=== PATIENT | male | born 1960 | race Caucasian/White ===

== ENCOUNTER 2018-01-31 14:29 | Emergency (ER) | payer OTHER ==
[2018-01-31 14:40] VITALS: O2SAT 97
--- NOTE | 2018-01-31 15:16 | ERPHSYRPT ---
- History of Present Illness Time Seen by Provider: 01/31/18 15:00 Source: patient Exam Limitations: no limitations Patient Subjective Stated Complaint: pt reports getting cut by a table saw on right hand-pointer and middle finger Triage Nursing Assessment: pt pink warm and [id number] noted with bleedign controlled-tip of finger absent to finger tip Physician History: The patient is a 57-year-old right-handed male who accidentally cut the tip of his left index and left middle finger on a table saw. He has no numbness or tingling. It also cut through his fingernail. He is able to move his fingers without problems. His tetanus vaccination is more than 5 years. His past medical history significant for diabetes and hypertension. Timing/Duration: today Quality: painful Severity: moderate Location: hands (left) Possible Causes: other (table saw) Allergies/Adverse Reactions: No Known Drug Allergies Allergy (Verified 01/31/18 14:40) Home Medications: Aspirin 81 gm Chew [Baby Aspirin 81 mg Chew] 81 mg PO DAILY 01/31/18 [ History] Carvedilol 6.25 mg [Coreg 6.25 MG] 6.25 mg PO BID 01/31/18 [History] Etodolac 200 mg PO BID 01/31/18 [History] Glimepiride 4 mg [Amaryl 4 mg] 6 mg PO DAILY 01/31/18 [History] Hydrochlorothiazide 12.5 mg PO DAILY 01/31/18 [History] Metformin HCl 500 mg [Glucophage 500 MG] 500 mg PO BIDWM 01/31/18 [History ] Hx Tetanus, Diphtheria Vaccination/Date Given: Yes Hx Influenza Vaccination/Date Given: No Hx Pneumococcal Vaccination/Date Given: No Immunizations Up to Date: Yes - Review of Systems Constitutional: No Fever, No Chills Eyes: No Symptoms Ears, Nose, & Throat: No Symptoms Respiratory: No Cough, No Dyspnea Cardiac: No Chest Pain, No Edema, No Syncope Abdominal/Gastrointestinal: No Abdominal Pain, No Nausea, No Vomiting, No Diarrhea Genitourinary Symptoms: No Dysuria Musculoskeletal: No Back Pain, No Neck Pain Skin: Other (lacerations) Neurological: No Dizziness, No Focal Weakness, No Sensory Changes Psychological: No Symptoms Endocrine: No Symptoms Hematologic/Lymphatic: No Symptoms Immunological/Allergic: No Symptoms All Other Systems: Reviewed and Negative - Past Medical History Pertinent Past Medical History: Yes Neurological History: No Pertinent History ENT History: No Pertinent History Cardiac History: Hypertension Respiratory History: No Pertinent History Endocrine Medical History: Diabetes Type II Musculoskeletal History: No Pertinent History GI Medical History: No Pertinent History History: No Pertinent History Psycho-Social History: No Pertinent History Male Reproductive Disorders: No Pertinent History - Past Surgical History Past Surgical History: Yes Neuro Surgical History: No Pertinent History Cardiac: No Pertinent History Respiratory: No Pertinent History Gastrointestinal: No Pertinent History Genitourinary: No Pertinent History Musculoskeletal: No Pertinent History Male Surgical History: No Pertinent History Other Surgical History: CARPAL TUNEL - Social History Smoking Status: Never smoker How long have you smoked: 30 YRS Exposure to second hand smoke: No Drug Use: none Patient Lives Alone: No - Nursing Vital Signs Nursing Vital Signs: Initial Vital Signs Pulse Rate 83 01/31/18 14:37 Respiratory Rate 18 01/31/18 14:37 Blood Pressure 139/95 01/31/18 14:37 O2 Sat by Pulse Oximetry 97 01/31/18 14:37 Pain Scale Pain Intensity 4 - Physical Exam General Appearance: no apparent distress, alert Eye Exam: PERRL/EOMI, eyes nml inspection Ears, Nose, Throat Exam: normal ENT inspection, pharynx normal, moist mucous membranes Neck Exam: normal inspection, non-tender, supple, full range of motion Respiratory Exam: normal breath sounds, lungs clear, No respiratory distress Cardiovascular Exam: regular rate/rhythm, normal heart sounds Gastrointestinal/Abdomen Exam: soft, mass, No tenderness Rectal Exam: not done Back Exam: normal inspection, normal range of motion, No CVA tenderness, No vertebral tenderness Extremity Exam: normal inspection, normal range of motion Neurologic Exam: alert, oriented x 3, cooperative, normal mood/affect, sensation nml, No motor deficits Skin Exam: laceration (lacerations to tip of left index and middle fingers.) SpO2 Interpretation: normal SpO2: 97 Oxygen Delivery: Room Air Procedures - Laceration/Wound Repair Left Finger Wound Location: Left, hand Wound Length (cm): 1.5 Wound's Depth, Shape: irregular, contused tissue, into subcut Wound Explored: no foreign body noted Irrigated: Yes Hibiclens Prep: Yes Anesthesia: digital block, 1% Lidocaine Volume Anesthetic (ccs): 5 Wound Repaired With: sutures Suture Size/Type: 4-0, nylon Number of Sutures: 4 Layer Closure?: No Left Hand Wound Location: Left, hand Wound Length (cm): 1.5 Wound's Depth, Shape: linear, irregular, nail-avulsed, contused tissue Wound Explored: contaminated Irrigated: Yes Hibiclens Prep: Yes Anesthesia: digital block, 1% Lidocaine Volume Anesthetic (ccs): 5 Wound Debrided: minimal Wound Repaired With: sutures Suture Size/Type: 4-0 Number of Sutures: 3 Layer Closure?: No - Radiology Exams Left Hand X-ray Interpretation: Interpreted by me, Displaced Fracture (open comminuted tuft fractures to left index and middle fingers.) Ordered Tests: Active Orders 24 hr Category Date Time Status IV Insertion STAT Care 01/31/18 16:05 Active Wound Care STAT Care 01/31/18 16:04 Active FINGER(S) Stat Exams 01/31/18 15:19 Taken Medication Summary Generic Name Dose Route Start Last Admin Trade Name Freq PRN Reason Stop Dose Admin Cefazolin Sodium/Dextrose 50 mls @ 100 mls/hr 01/31/18 16:04 Kefzol 1 Gm/50 Ml Premix IV 01/31/18 16:33 STAT ONE Discontinued Medications Generic Name Dose Route Start Last Admin Trade Name Freq PRN Reason Stop Dose Admin Diphtheria/Tetanus/Acell Pertussis 0.5 ml 01/31/18 16:04 01/31/18 16:20 Adacel Vial IM 01/31/18 16:05 0.5 ml .ONCE ONE Administration Diphtheria/Tetanus/Acell Pertussis Confirm 01/31/18 16:18 Adacel Vial Administered 01/31/18 16:19 Dose 0.5 ml IM .STK-MED ONE Lidocaine HCl 5 ml 01/31/18 16:04 01/31/18 16:21 Xylocaine 1% Hcl 20 Ml Mdv IJ 01/31/18 16:05 5 ml STAT ONE Administration Lidocaine HCl Confirm 01/31/18 16:15 Xylocaine 1% Hcl 20 Ml Mdv Administered 01/31/18 16:16 Dose 5 ml .ROUTE .STK-MED ONE - Progress Progress: improved Counseled pt/family regarding: diagnosis, need for follow-up, rad results - Departure Time of Disposition: 16:57 Departure Disposition: Home Clinical Impression: Open fracture of finger of left hand, Open fracture of finger, distal phalanx Condition: Stable Critical Care Time: No Referrals: YUE PATEL MD [Primary Care Provider] - Additional Instructions: You have a laceration at the tip of your left index and middle fingers that cut through into the bone on each finger. You were given Ancef 1 g by IV and a tetanus vaccination in the ER. Take Augmentin 875 one tablet 2 times a day for 10 days. Take Tylenol No. 3 one tablet every 4-6 hours as needed for pain. Keep the wound on each finger that is open at the fingernail clean. Keep it covered until healed. See your family doctor in about 12 days for suture removal. Prescriptions: Amoxicillin/Potassium Clav [Augmentin 875-125 Tablet] 875 mg PO BID #20 tablet Codeine Phosphate/APAP #3 [Tylenol #3 Tablet] 1 tab PO Q4-6HPRN PRN #10 tablet PRN Reason: Pain
[2018-01-31] MEDS ORDERED: KEFZOL 1 GM/50 ML PREMIX** 1 GM/50 ML IVPB IV ONE (16:04)
[2018-01-31] MEDS ORDERED: Adacel Vial IM ONE ×2 (16:04→16:18)
[2018-01-31] MEDS ORDERED: XYLOCAINE 1% HCL 20 ML MDV IJ ONE (16:04)
[2018-01-31] MEDS ORDERED: XYLOCAINE 1% HCL 20 ML MDV ONE (16:15)
[2018-01-31 17:06] VITALS: BP 147/92; PULSE 74
--- NOTE | 2018-01-31 21:56 | XRAY ---
Indication: Pain following saw injury. Comparison: Left second finger study July 13, 2013. 3 views of the left second/third fingers now demonstrates minimally displaced tuft fractures with distal lacerations. Partially visualized third finger tiny soft tissue foreign body.
== END 2018-01-31 17:18 | disposition home or self-care (01) ==
LOC: ED 14:29
PROC: 0HQGXZZ Repair Left Hand Skin, External Approach (ICD-10-PCS; principal; 2018-01-31)
DX: S62.621B Displaced fracture of middle phalanx of left index finger, initial encounter for open fracture (principal); W31.2XXA Contact with powered woodworking and forming machines, initial encounter; E11.9 Type 2 diabetes mellitus without complications; Z79.4 Long term (current) use of insulin; I10 Essential (primary) hypertension; A35 Other tetanus; Z23 Encounter for immunization
CPT/HCPCS: 12002; 36000; 73140; 90471; 90715; 96372; 99284; J0690